=== PATIENT | female | born 1985 ===

== ENCOUNTER 2023-02-16 14:43 | Outpatient (CLI) | payer OTHER | END 2023-02-16 16:42 | disposition home or self-care (01) | LOC: PRENATAL 14:43 | PROVIDERS: ATTEND Obstetrics & Gynecology Maternal & Fetal Medicine | DX: O35.9XX0 Maternal care for (suspected) fetal abnormality and damage, unspecified, not applicable or unspecified (principal); O35.3XX0 Maternal care for (suspected) damage to fetus from viral disease in mother, not applicable or unspecified; O09.529 Supervision of elderly multigravida, unspecified trimester; O99.210 Obesity complicating pregnancy, unspecified trimester; Z3A.19 19 weeks gestation of pregnancy ==